=== PATIENT | female | born 1990 | race Caucasian/White ===

== ENCOUNTER 2016-12-11 01:42 | Emergency (ER) | payer BC, OTHER ==
[~2016-12-11] VITALS: Ht 154.9 cm; Wt 88.6 kg
[~2016-12-11 01:42] MED LIST: BCPILLS PO
[2016-12-11 01:46] VITALS: TEMP 36.7; Ht 154.9 cm; Wt 88.6 kg
--- NOTE | 2016-12-11 02:11 | EMERGENCY ROOM VISIT NOTE ---
History Report prepared by Dorothy: Sariah Freed Under the Supervision of: Dr. Carie Riley D.O. First contact with patient: 01:50 Chief Complaint: ED VAG BLEEDING Stated Complaint: BLEEDING,7 WEEKS PREG History of Present Illness The patient is a 26 year old female who presents to the Emergency Room with complaints of sudden vaginal bleeding that began a few hours ago. She currently rates her discomfort as a 2/10 in severity. The patient states that she was approximately 7 weeks . She states that she has been planning to undergo a medical . The patient states that she took the 1 Mifeprex and two Doxycycline prescribed for the medical , but states that she did not take the second set of pills yesterday due to having work through the day. She states that she woke up a few hours ago with vaginal bleeding and noticed clots. The patient states that she was receiving her care from [facility] in [address], noting that she had positive tests, and an ultrasound. She denies any other active medical problems. The patient denies any lightheadedness or weakness. She states that her last normal menstrual cycle was October 19. Source of History: patient Onset: a few hours ago Position: other (vaginal) Symptom Intensity: 2/10 Quality: other (bleeding) Timing: other (sudden) Associated Symptoms: No weakness Review of Systems See HPI for pertinent positives & negatives. A total of 10 systems reviewed and were otherwise negative. Past Medical & Surgical Medical Problems: (1) Tonsillectomy Family History Cancer Diabetes mellitus Heart disease Hypertension Social History Smoking Status: Current Every Day Smoker Alcohol Use: none Drug Use: none Marital Status: single Housing Status: lives with family Occupation Status: employed Current/Historical Medications No Active Prescriptions or Reported Meds Allergies Coded Allergies: Cat Dander (Verified Allergy, Unknown, UNK, 12/11/16) Dog Dander (Verified Allergy, Unknown, UNK, 12/11/16) Latex1 -Allergic Contact Dermititis (Verified Allergy, Unknown, RASH, 12/11) POLLEN (Verified Allergy, Unknown, UNK, 12/11/16) Physical Exam Vital Signs Date Time Temp Pulse Resp B/P Pulse Ox O2 Delivery O2 Flow Rate FiO2 12/11/16 05:35 88 18 108/68 98 12/11/16 03:45 89 18 114/60 99 Room Air 12/11/16 01:46 36.7 78 18 127/86 98 Room Air Physical Exam HEENT: Head - normocephalic and atraumatic Pupils are equal, round, and reactive to light. Extraocular eye muscles are intact, and sclera are anicteric. Nose - moist nasal mucosa without discharge. Mouth - moist buccal mucosa. Oropharynx is nonerythematous and there is no tonsillar exudate or edema noted. Neck: Supple; no JVD, nuchal rigidity, cervical lymphadenopathy. Heart: Regular rate and rhythm. There is a normal S1 and S2 with no murmurs, clicks, or gallops appreciated. Lungs: Clear to auscultation bilaterally with no wheezes, rales, or rhonchi. Abdomen: Soft, completely nontender, nondistended, with good bowel sounds. There are no palpable pulsatile masses or hepatosplenomegaly. There is no guarding, rigidity, or rebound noted. Pelvic: On speculum exam, large clots removed with ring forceps, cervical os is open Extremities: No evidence of cyanosis, clubbing, or edema. There are easily palpable peripheral pulses. Skin: warm and dry with good turgor and no rashes. Medical Decision & Procedures ER Provider Diagnostic Interpretation: US results as stated below per my review and radiologist interpretation: US Ob/Endovag: Heterogeneous thickened endometrial stripe with movement likely blood clot. Probable nabothian cysts in lower uterine segment, versus 1 may be gestational sac. Findings correlate with spontaneous AB. 5 cm right ovarian cyst. Follicles and flow visualized in both ovaries. Trace free fluid in the cul-de-sac and left adnexa. Radiologist: Tarah Cook MD Study ready at 9871 and initial results transmitted at 0500. Laboratory Results 12/11/16 02:15 Test 12/11/16 02:15 Red Blood Count 4.85 M/uL (4.2-5.4) Mean Corpuscular Volume 88.5 fL (80-100) Mean Corpuscular Hemoglobin 31.5 pg (25-34) Mean Corpuscular Hemoglobin Concent 35.7 g/dl (32-36) RDW Standard Deviation 42.0 fL (36.4-46.3) RDW Coefficient of Variation 13.0 % (11.5-14.5) Mean Platelet Volume 10.9 fL (7.4-10.4) Human Chorionic Gonadotropin, Quant 31438 mIU/mL Laboratory results per my review. ED Course 0200: Past medical records reviewed. The patient was evaluated in room B12A. A complete history and physical exam was performed. An IV lock was initiated and labs are drawn as above. 0235: The nurse alerted me that the patient vomited and became dizzy with the IV stick. I reevaluated the patient and she is feeling fine. 0330: I reevaluated the patient and had some vaginal hemorrhage when she got up to go to the bathroom. She is going to have an ultrasound 0506: I reevaluated the patient and she is doing fine. I discussed her ultrasound results. She is going to have a pelvic exam. 0513: I performed the pelvic exam at this time. See physical exam for further detail. I discussed all the exam findings with her and I discussed the treatment plan. She verbalized complete understanding and agreement. She is ready to go home. Medical Decision The patient is a 26 year old female who presents to the ED with vaginal bleeding. Differential diagnosis includes spontaneous miscarriage, ectopic Lab interpretation: Quantitative HCG 44,205, normal white count, stable H&H This is a 26-year-old female patient who is approximately 7 weeks who presents to the emergency department with vaginal bleeding.. The patient had intended to undergo a medical but did not get a chance to take the medications before developing a spontaneous miscarriage. This was her first . Ultrasound shows miscarriage in progress. The patient has a positive blood type and will not require Rhogam. The patient was instructed to follow-up with her cadd instructor to have the quantitative hCG rechecked in the next couple of days. Impression Primary Impression: Spontaneous Scribe Attestation The scribe's documentation has been prepared under my direction and personally reviewed by me in its entirety. I confirm that the note above accurately reflects all work, treatment, procedures, and medical decision making performed by me. Departure Information Dispostion Home / Self-Care Prescriptions No Active Prescriptions or Reported Meds Referrals Tasha De Luna PLexie (PCP) Forms HOME CARE DOCUMENTATION FORM, IMPORTANT VISIT INFORMATION, WORK / SCHOOL INSTRUCTIONS Patient Instructions ED Miscarriage Inevitable, My [facility] Additional Instructions Rest. Take plenty of clear liquids Follow up with gynecology for repeat quantitative hormone levels.
[2016-12-11 02:24] LABS: HEMATOCRIT 42.9 % (37-47); MEAN CELL VOLUME 88.5 fL (80-100); MEAN CORPUSCULAR HEMOGLOBIN 31.5 pg (25-34); MEAN CORPUSCULAR HGB CONC 35.7 g/dl (32-36); MEAN PLATELET VOLUME 10.9 fL (7.4-10.4); PLATELET COUNT 281 K/uL (130-400); RED BLOOD COUNT 4.85 M/uL (4.2-5.4); WHITE BLOOD COUNT 8.79 K/uL (4.8-10.8)
[2016-12-11 05:35] VITALS: BP 108/68; PULSE 88; O2SAT 98
--- NOTE | 2016-12-11 07:48 | DIAGNOSTIC IMAGING REPORT ---
ENDOVAGINAL ULTRASOUND CLINICAL HISTORY: . Possible spontaneous . 7 weeks COMPARISON STUDY: No previous studies for comparison. FINDINGS: The uterus measures 7.6 x 4.4 x 4.9 cm. The endometrium is thickened measuring 19 mm. Fluid is visualized moving within the uterine cavity, consistent with hemorrhage. No intrauterine gestational sac is visualized. There are multiple nabothian gland cysts. The right ovary measures 35 x 26 x 37 mm. There is a 5.2 cm right ovarian cyst. No septations or mural nodules are visualized. The left ovary measures 29 x 23 x 24 mm. There is trace fluid within the cul-de-sac and left adnexa. IMPRESSION: 1. No intrauterine gestation identified 2. Heterogeneous thickened endometrium, likely representing a blood clot. 3. 5.2 cm right ovarian cyst. 4. Given the history of a 7 week , the findings may indicate a spontaneous . Correlation with quantitative beta hCGs is recommended. Electronically signed by: Jarod Castro M.D. 12/11/2016 7:46 AM Dictated Date/Time: 12/11/2016 7:42 AM
== END 2016-12-11 05:36 | disposition home or self-care (01) ==
LOC: C.EDB 01:44
DX: O03.9 Complete or unspecified spontaneous abortion without complication (principal); Z3A.01 Less than 8 weeks gestation of pregnancy; F17.210 Nicotine dependence, cigarettes, uncomplicated

== ENCOUNTER 2017-08-06 22:03 | Emergency (ER) | payer BC, OTHER ==
[~2017-08-06] VITALS: Ht 154.9 cm; Wt 86.0 kg
[2017-08-06 22:05] VITALS: TEMP 36.6; Ht 154.9 cm; Wt 86.0 kg
[2017-08-06] MEDS ORDERED: SODIUM CHLORIDE 0.9% 1000ML 1,000 ML IV STA (22:22)
[2017-08-06] MEDS ORDERED: ONDANSETRON INJ 2 MG/ML 2 ML VIAL IV STA ×2 (22:22→23:48)
[2017-08-06] MEDS ORDERED: MoRPHine SULFATE 4 MG/ML 1 ML CARP\\VIAL IV STA ×2 (22:22→23:48)
--- NOTE | 2017-08-06 22:25 | EMERGENCY ROOM VISIT NOTE ---
History First contact with patient: 22:15 Chief Complaint: ABDOMINAL PAIN Stated Complaint: ABDOMINAL PAIN, LEFT UPPER, VOMITING History of Present Illness The patient is a 27 year old female who presents to the Emergency Room with complaints of upper abdominal pain, nausea and vomiting. The patient states that she was shopping today and felt an achiness in her back and shoulder. She states that she ate dinner around 7:30 PM and then began to have worsening pain. She states she had fried fish. She also reports associated vomiting. She rates her discomfort an 8/10. She denies any fevers or chills. She denies any pain in her chest or trouble breathing. She denies any urinary symptoms. She denies diarrhea. She denies any known sick contacts. She denies any history of similar. Review of Systems A 10 system review of systems was completed with positives and pertinent negatives listed in the HPI. Past Medical/Surgical History Medical Problems: (1) Tonsillectomy Family History Cancer Diabetes mellitus Heart disease Hypertension Social History Smoking Status: Never Smoker Alcohol Use: none Drug Use: none Marital Status: single Housing Status: lives with family Occupation Status: employed Current/Historical Medications Scheduled Ondasetron Odt (Zofran Odt), 4 MG SL Q6H Scheduled PRN Oxycodone/Acetaminophen 5MG/325MG (Percocet 5MG/325MG), 1 TAB PO Q4H PRN for Pain Physical Exam Vital Signs Date Time Temp Pulse Resp B/P (MAP) Pulse Ox O2 Delivery O2 Flow Rate FiO2 08/07/17 00:38 79 18 103/68 97 Room Air 08/06/17 23:17 86 18 108/61 96 Room Air 08/06/17 22:05 36.6 75 20 140/48 99 Room Air Physical Exam VITALS: Vitals are noted on the nurse's note and reviewed by myself. Vital signs stable. The patient is afebrile. GENERAL: This is a 27-year-old female, in no acute distress, nondiaphoretic, well-developed well-nourished. SKIN: The skin was without rashes, erythema, edema, or bruising. There is no tenting of the skin. Capillary reflex less than 2 seconds. HEAD: Normocephalic atraumatic. EARS: External auditory canals clear, tympanic membranes pearly garcia without erythema or effusion bilaterally. EYES: Pupils equal round and reactive to light and accommodation. Conjunctivae without injection, sclerae without icterus. Extraocular movements intact. NOSE: Patent, turbinates without inflammation or discharge. MOUTH: Mucous membranes moist. Tonsils are not enlarged. Pharynx without erythema or exudate. Uvula midline. Airway patent. Tongue does not deviate. NECK: Supple without nuchal rigidity. No JVD. HEART: Regular rate and rhythm without murmurs gallops or rubs. LUNGS: Clear to auscultation bilaterally without wheezes, rales or rhonchi. No retractions or accessory muscle use. ABDOMEN: Positive bowel sounds x 4. Soft, marked right upper quadrant tenderness, without masses or organomegaly. Parker sign positive. MUSCULOSKELETAL: No muscle atrophy, erythema, or edema noted. Full range of motion in all extremities. Strength 5/5 throughout. NEURO: Patient was alert and oriented to person place and time. No focal neurological deficits. Medical Decision & Procedures ER Provider Diagnostic Interpretation: GALLBLADDER-ABD LIMITED CLINICAL HISTORY: rug pain, vomiting nausea. Vomiting. TECHNIQUE: Ultrasound COMPARISON STUDY: None. FINDINGS: Gallstone is slightly distended gallbladder. Common bile duct 5 mm. Liver is uniform. Pancreas and right kidney are unremarkable. IMPRESSION: Gallstones in a slightly distended gallbladder. Normal caliber bile ducts. Laboratory Results 08/06/17 22:28 Red Blood Count 4.74, Mean Corpuscular Volume 89.9, Mean Corpuscular Hemoglobin 32.1, Mean Corpuscular Hemoglobin Concent 35.7, Mean Platelet Volume 11.3, Neutrophils (%) (Auto) 67.1, Lymphocytes (%) (Auto) 21.4, Monocytes (%) (Auto) 7.2, Eosinophils (%) (Auto) 3.3, Basophils (%) (Auto) 0.5, Neutrophils # (Auto) 7.13, Lymphocytes # (Auto) 2.28, Monocytes # (Auto) 0.77, Eosinophils # (Auto) 0.35, Basophils # (Auto) 0.05 08/06/17 22:28 Test 08/06/17 22:28 White Blood Count 10.63 K/uL (4.8-10.8) Red Blood Count 4.74 M/uL (4.2-5.4) Hemoglobin 15.2 g/dL (12.0-16.0) Hematocrit 42.6 % (37-47) Mean Corpuscular Volume 89.9 fL (80-100) Mean Corpuscular Hemoglobin 32.1 pg (25-34) Mean Corpuscular Hemoglobin Concent 35.7 g/dl (32-36) Platelet Count 296 K/uL (130-400) Mean Platelet Volume 11.3 fL (7.4-10.4) Neutrophils (%) (Auto) 67.1 % Lymphocytes (%) (Auto) 21.4 % Monocytes (%) (Auto) 7.2 % Eosinophils (%) (Auto) 3.3 % Basophils (%) (Auto) 0.5 % Neutrophils # (Auto) 7.13 K/uL (1.4-6.5) Lymphocytes # (Auto) 2.28 K/uL (1.2-3.4) Monocytes # (Auto) 0.77 K/uL (0.11-0.59) Eosinophils # (Auto) 0.35 K/uL (0-0.5) Basophils # (Auto) 0.05 K/uL (0-0.2) RDW Standard Deviation 42.8 fL (36.4-46.3) RDW Coefficient of Variation 13.1 % (11.5-14.5) Immature Granulocyte % (Auto) 0.5 % Immature Granulocyte # (Auto) 0.05 K/uL (0.00-0.02) Anion Gap 10.0 mmol/L (3-11) Est Creatinine Clear Calc Drug Dose 110.2 ml/min Estimated GFR () 123.5 Estimated GFR (Non- 106.6 BUN/Creatinine Ratio 19.9 (10-20) Calcium Level 9.5 mg/dl (8.5-10.1) Total Bilirubin 0.3 mg/dl (0.2-1) Aspartate Amino Transf (AST/SGOT) 15 U/L (15-37) Alanine Aminotransferase (ALT/SGPT) 39 U/L (12-78) Alkaline Phosphatase 91 U/L (45-117) Total Protein 8.0 gm/dl (6.4-8.2) Albumin 4.3 gm/dl (3.4-5.0) Globulin 3.7 gm/dl (2.5-4.0) Albumin/Globulin Ratio 1.2 (0.9-2) Lipase 111 U/L (73-393) Medications Administered Medications (Trade) Dose Ordered Sig/Winter Route Start Time Stop Time Status Last Admin Dose Admin Sodium Chloride 1,000 ml @ 999 mls/hr Q1H1M STAT IV 08/06/17 22:22 08/06/17 23:22 DC 08/06/17 22:35 999 MLS/HR Ondansetron HCl (Zofran Inj) 4 mg NOW STAT IV 08/06/17 22:22 08/06/17 22:24 DC 08/06/17 22:35 4 MG Morphine Sulfate (MoRPHine SULFATE INJ) 4 mg NOW STAT IV 08/06/17 22:22 08/06/17 22:24 DC 08/06/17 22:36 4 MG Morphine Sulfate (MoRPHine SULFATE INJ) 4 mg NOW STAT IV 08/06/17 23:48 08/06/17 23:49 DC 08/06/17 23:59 4 MG Ondansetron HCl (Zofran Inj) 4 mg NOW STAT IV 08/06/17 23:48 08/06/17 23:49 DC 08/06/17 23:59 4 MG Oxycodone/ Acetaminophen (Percocet 5/ 325MG Home Pack) 1 homepack UD ONCE PO 08/07/17 00:30 08/07/17 00:31 DC 08/07/17 00:42 1 HOMEPACK Ondansetron HCl (ZOFRAN ODT 4MG Home Pack) 1 homepack UD ONCE PO 08/07/17 00:30 08/07/17 00:31 DC 08/07/17 00:41 1 HOMEPACK ED Course The patient was seen and examined. Previous visits were reviewed. The patient does not have a fever or leukocytosis. She does not have any significant electrolyte abnormality. Lipase is not elevated. Ultrasound of the gallbladder reveals gallstones but no acute cholecystitis The patient was hydrated with IV normal saline solution She was initially given 4 mg IV morphine and 4 mg IV Zofran with mild improvement in her pain Pain returned prior to discharge and she was given additional 4 mg IV morphine and 4 mg IV Zofran the patient presents to the emergency department with upper abdominal pain, nausea and vomiting. Her symptoms worsened after eating a meal of fried fish. The patient does have gallstones on ultrasound the gallbladder. I suspect biliary colic. There is no fever, leukocytosis evidence for acute cholecystitis on ultrasound. The patient will require further follow-up as an outpatient and possibly HIDA scan/cholecystectomy. She will be given prescriptions for Percocet and Zofran. She should return with any intractable pain, fevers or generalized worsening symptoms. The case was discussed with Dr. Bautista who agrees with the assessment and she had plan Medical Decision DIFFERENTIAL DIAGNOSIS: Hepatitis, cholecystitis, cholangitis, biliary colic, pancreatitis, pneumonia, subdiaphragmatic abscess, appendicitis, inguinal hernia , nephrolithiasis, inflammatory bowel disease, mesenteric adenitis, peptic ulcer disease, GERD, gastritis, pancreatitis, myocardial infarction, pericarditis, ruptured aortic aneurysm, appendicitis, gastroenteritis, bowel obstruction, splenic infarct, diverticulitis, mesenteric ischemia, metabolic, peritonitis, among others. [place] Drug Monitoring [place] Search Results: patient reviewed within database, no issues identified Medication Reconcilliation Current Medication List: was personally reviewed by pa Blood Pressure Screening Patient's blood pressure: Normal blood pressure Blood pressure disposition: Did not require urgent referral Impression Primary Impression: Biliary colic Additional Impression: Gall stones Departure Information Dispostion Home / Self-Care Condition GOOD Prescriptions Ondasetron Odt (ZOFRAN ODT) 4 Mg Tab 4 MG SL Q6H for Nausea, #10 TAB Prov: Sariah Wang PA-C 08/07/17 Oxycodone/Acetaminophen 5MG/325MG (PERCOCET 5MG/325MG) Tab 1 TAB PO Q4H Y for Pain, #18 TAB For Initial Treatment Prov: Sariah Wang PA-C 08/07/17 Referrals Tasha De Luna AAngela PLexie (PCP) Patient Instructions My [facility] [employer] Additional Instructions Percocet 1-2 tablet every 4-6 hours as needed for worse pain. No driving or alcohol use with Percocet and do not take with Tylenol. Zofran as prescribed, as needed for nausea and vomiting Avoid greasy, fatty foods Follow up with your family doctor and/or Gen. surgery for further evaluation and management Return with any fevers, worsening, constant pain Problem Qualifiers
[2017-08-06 22:38] LABS: BASO % 0.5 %; BASO ABS # 0.05 K/uL (0-0.2); COMPLETE YES; EOS % 3.3 %; HEMATOCRIT 42.6 % (37-47); IG% 0.5 %; LYMPH % 21.4 %; LYMPH ABS # 2.28 K/uL (1.2-3.4); MEAN CELL VOLUME 89.9 fL (80-100); MEAN CORPUSCULAR HEMOGLOBIN 32.1 pg (25-34); MEAN CORPUSCULAR HGB CONC 35.7 g/dl (32-36); MEAN PLATELET VOLUME 11.3 fL (7.4-10.4); MONO % 7.2 %; NEUT % 67.1 %; PLATELET COUNT 296 K/uL (130-400); RED BLOOD COUNT 4.74 M/uL (4.2-5.4); WHITE BLOOD COUNT 10.63 K/uL (4.8-10.8)
[2017-08-06 22:56] LABS: BUN/CREATININE RATIO 19.9 (10-20); CALCIUM 9.5 mg/dl (8.5-10.1); CREATININE 0.77 mg/dl (0.60-1.20); POTASSIUM 3.3 mmol/L (3.5-5.1)
[2017-08-06 22:59] LABS: ALB/GLOB RATIO 1.2 (0.9-2)
[2017-08-07] MEDS ORDERED: ONDA4TAB10 SL (00:26)
[2017-08-07] MEDS ORDERED: OXYC-57 PO (00:26)
[2017-08-07] MEDS ORDERED: PERCOCET HOME PACK PO ONE (00:30)
[2017-08-07] MEDS ORDERED: ONDANSETRON HOME PACK 4MG OD TAB PO ONE (00:30)
[2017-08-07 00:38] VITALS: BP 103/68; PULSE 79; O2SAT 97
--- NOTE | 2017-08-07 05:56 | DIAGNOSTIC IMAGING REPORT ---
GALLBLADDER-ABD LIMITED CLINICAL HISTORY: rug pain, vomiting nausea. Vomiting. TECHNIQUE: Ultrasound COMPARISON STUDY: None. FINDINGS: Gallstone is slightly distended gallbladder. Common bile duct 5 mm. Liver is uniform. Pancreas and right kidney are unremarkable. IMPRESSION: Gallstones in a slightly distended gallbladder. Normal caliber bile ducts. The above report was generated using voice recognition software. It may contain grammatical, syntax or spelling errors. Electronically signed by: Brock Arias M.D. 08/07/2017 5:55 AM Dictated Date/Time: 08/07/2017 5:54 AM
== END 2017-08-07 00:52 | disposition home or self-care (01) ==
LOC: C.EDB 22:04 → C.EDA 08-07 00:52
DX: K80.80 Other cholelithiasis without obstruction (principal); Z98.890 Other specified postprocedural states; Z80.9 Family history of malignant neoplasm, unspecified; Z83.3 Family history of diabetes mellitus; Z82.49 Family history of ischemic heart disease and other diseases of the circulatory system

== ENCOUNTER 2020-06-14 13:52 | Inpatient (IN) ==
[2020-06-14] MEDS ORDERED: OXYTOCIN 30 UNITS/500 ML BAG IV PRN ×2 (14:26→20:58)
[2020-06-14] MEDS: LACTATED RINGER'S 1,000 ML IV PRN ×3 (14:49→21:28)
[2020-06-14] MEDS ORDERED: fentaNYL 2MCG/ML ROPIV 1.25MG/ML 100 ML BAG EPI ONE (14:53)
[2020-06-14] MEDS ORDERED: ePHEDrine sulfate 50 MG/ML AMP ONE (14:53)
[2020-06-14] MEDS ORDERED: fentaNYL citrate 100 MCG/2 ML VIAL ONE (14:53)
[2020-06-14] MEDS ORDERED: BUPIVACAINE 0.25% 30 ML VIAL ONE (14:53)
--- NOTE | 2020-06-14 14:58 | Anesthesiology Consultation ---
Date of Service June 14, 2020 Assessment & Plan (1) Encounter for pre-operative examination: History Allergies Allergy/AdvReac Type Severity Reaction Status Date / Time cat dander Allergy Unknown PUFFY EYES Verified 06/12/20 10:05 dog dander Allergy Unknown PUFFY EYES Verified 06/12/20 10:05 latex Allergy Unknown RASH Verified 06/12/20 10:05 pollen extracts Allergy Unknown PUFFY EYES Verified 06/12/20 10:05 Medications Home Medications Medication Instructions Recorded Confirmed Last Taken prenat.vits,roxanne,[id number] 1 tab PO DAILY 10/29/19 06/12/20 Unknown Active Medications Generic Name Dose Route Start Last Admin Trade Name Freq PRN Reason Stop Dose Admin Lactated Ringer's 1,000 mls @ 125 mls/hr 06/14/20 14:26 06/14/20 14:49 Lr IV 06/16/20 14:25 999 mls/hr .Q8H PRN Administration L&D Protocol Protocol Past Medical History Medical History Abnormal biochemical finding on screening of mother (Resolved) Environmental and seasonal allergies (Chronic) History of chicken pox Hx of migraines Nausea, vomiting and diarrhea (Inactive) Ovarian cyst affecting , antepartum Second trimester (Inactive) URI (upper respiratory infection) (Inactive) Past Family History Family History Mother Diabetes Hypertension Grandmother (Maternal) Colorectal cancer Father Skin cancer Past Surgical History Surgical History S/P cholecystectomy S/P tonsillectomy S/P wisdom tooth extraction Social History Smoking Status: Never smoker Physical Exam Vital Signs Last Vital Signs Pulse 93 H 06/14/20 14:09 BP 138/104 H 06/14/20 14:09
[2020-06-14 15:12] LABS: Alanine Aminotransferase 13 U/L (12-78); Albumin Level 2.8 gm/dl (3.4-5.0); Aspartate Aminotransferase 11 U/L (15-37); BUN Creatinine Ratio 13.9 (10-20); Blood Urea Nitrogen 10 mg/dl (7-18); Calcium 9.3 mg/dl (8.5-10.1); Carbon Dioxide 21 mmol/L (21-32); Chloride 108 mmol/L (98-107); Est GFR (African American) 132.1; Glucose 75 mg/dl (70-99); Potassium 3.7 mmol/L (3.5-5.1); Sodium 136 mmol/L (136-145)
[2020-06-14 15:15] LABS: Albumin Globulin Ratio 0.6 (0.9-2); Alkaline Phosphatase 218 U/L (45-117); Bilirubin,Total 0.3 mg/dl (0.2-1); Globulin 4.5 gm/dl (2.5-4.0); Total Protein 7.3 gm/dl (6.4-8.2)
[2020-06-14 15:18] LABS: Hematocrit (blood only) 41.1 % (37-47); Hemoglobin 13.8 g/dL (12.0-16.0); Mean Corpuscular Hemoglobin 27.5 pg (25-34); Mean Corpuscular Volume 81.9 fL (80-100); Mean Platelet Volume 12.7 fL (7.4-10.4); Platelet Count 300 K/uL (130-400); RDW Coefficient of Variation 15.5 % (11.5-14.5); RDW Standard Deviation 45.3 fL (36.4-46.3); Red Blood Count 5.02 M/uL (4.2-5.4); White Blood Count 11.23 K/uL (4.8-10.8)
[2020-06-14 15:19] LABS: Mean Corpuscular Hgb Conc 33.6 g/dL (32-36)
--- NOTE | 2020-06-14 16:18 | History & Physical Report ---
Date of Service June 14, 2020 Assessment & Plan (1) Encounter for supervision in primigravida, antepartum: (2) Cyst of right ovary: (3) Obesity affecting , antepartum: (4) Cervical polyp: (5) Normal labor: admit, iv, labs, has epidural, good progress. fhts categ 1. Admission and Anticipated Discharge Date Admission Date: June 14, 2020 History of Present Illness Chief Complaint: regular ctx. Primary Care Provider: Tasha De Luna PA-C 29yo at 39+wks egananth presents to L&D with above cc. On arrival exam 5cm and regular painful ctx, wanting epidural and received epidural. While getting epidural felt like her water broke. No vb. +FM PNC c/b 1. obesity, aga on efw at 32wks 2. simple cyst, plan pp followup 3. cervical polyp PNL rhpos, ri, gbs neg OBH: sab x 1 [facility]: nl paps, no stds Allergies Allergy/AdvReac Type Severity Reaction Status Date / Time cat dander Allergy Unknown PUFFY EYES Verified 06/12/20 10:05 dog dander Allergy Unknown PUFFY EYES Verified 06/12/20 10:05 latex Allergy Unknown RASH Verified 06/12/20 10:05 pollen extracts Allergy Unknown PUFFY EYES Verified 06/12/20 10:05 Home Medications Home Medications Medication Instructions Recorded Confirmed Type prenat.vits,roxanne,[id number] 1 tab PO DAILY 10/29/19 06/12/20 History Patient History Medical History Abnormal biochemical finding on screening of mother (Resolved) Environmental and seasonal allergies (Chronic) History of chicken pox Hx of migraines Nausea, vomiting and diarrhea (Inactive) Ovarian cyst affecting , antepartum Second trimester (Inactive) URI (upper respiratory infection) (Inactive) Surgical History S/P cholecystectomy S/P tonsillectomy S/P wisdom tooth extraction Family History Mother Diabetes Hypertension Grandmother (Maternal) Colorectal cancer Father Skin cancer Social History (Reviewed 01/25/20 @ 20:23 by Hortensia Jama Preferred Language: Croatian Promotions Team Leader Required: No Beliefs That Will Affect Care: None marital status: marital status details: Arthur Wallace (25) [phone] Current Living Situation: Spouse Current Living Situation Comment: lives with spouse, dog current occupational status: employed 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[employer] Other Information That Helps Us Care for You: No Feels Safe at Home: Yes Safety Concerns: Feels Safe At This Time Smoking Status: Never smoker Do You Dip or Chew Tobacco: No ; Second Hand Exposure: No ; Tobacco Cessation Education Requested by Patient: No Hx Alcohol Use: No Hx Substance Use: No Review of Systems per hpi Physical Exam Constitutional: WD/WN, vitals as above Respiratory: normal respiratory effort, lungs clear to auscultation Cardiovascular: Rate/Rhythm: regular rate and regular rhythm Gastrointestinal (Abdomen): soft gravid nt Musculoskeletal: no edema Neurologic: grossly normal Psychiatric: A+Ox3, euthymic affect Genitourinary: OB Exam Abdomen: + estimated weight (7-8#) Manual OB Exam: + cervical dilation 6 cm, + cervical effacement 90%, + station -1 and + amniotic fluid (forebag arom) meconium OB Exam Monitor Tracing: + external FHT monitor used (135 mod variability), + external uterine monitor used (q2), + category I and + normal FHT variability Results & Data ([facility]) Vital Signs (Past 12 Hours) Vital Signs Temp Pulse Resp BP Pulse Ox 06/14/20 16:16 115 H 94 06/14/20 16:15 97 H 93 06/14/20 16:12 98 H 106/57 L 06/14/20 16:10 102 H 100 06/14/20 16:09 112 H 79/48 L 06/14/20 16:06 102 H 95/52 L 06/14/20 16:05 107 H 99 06/14/20 16:03 111 H 109/54 L 06/14/20 16:00 98.1 F 113 H 18 104/54 L 99 06/14/20 15:55 124 H 100 06/14/20 15:50 102 H 100 06/14/20 15:45 94 H 98 06/14/20 15:40 102 H 97 06/14/20 15:35 88 99 06/14/20 15:30 102 H 98 06/14/20 15:25 105 H 99 06/14/20 15:23 90 87 L 06/14/20 15:20 93 H 100 06/14/20 15:17 98.6 F 18 06/14/20 15:15 92 H 100 06/14/20 15:10 96 H 99 06/14/20 15:05 89 93 06/14/20 15:04 85 93 06/14/20 14:59 86 115/84 06/14/20 14:09 93 H 138/104 H Coding Level of Care Code None Diagnoses Encounter for supervision in primigravida, antepartum Z34.00 Cyst of right ovary N83.201 Obesity affecting , antepartum O99.210 Cervical polyp N84.1 Normal labor O80; Z37.9
[2020-06-14] MEDS ORDERED: fentaNYL 2MCG/ML ROPIV 1.25MG/ML 100 ML BAG EPI PRN (16:56)
[2020-06-14] MEDS ORDERED: ePHEDrine sulfate 50 MG/ML AMP IV PRN (16:56)
[2020-06-14] MEDS ORDERED: NALOXONE HCL 0.4 MG/1 ML VIAL/CARP IV PRN (16:56)
[2020-06-14] MEDS ORDERED: ONDANSETRON INJ 2 MG/ML 2 ML VIAL IV PRN (16:56)
[2020-06-14] MEDS ORDERED: NALOXONE HCL 1 MG in SODIUM CHLORIDE 0.9% 1000ML 1,000 ML IV PRN (16:56)
[2020-06-14] MEDS ORDERED: DiphenhydrAMINE HCL 50 MG/ML VIAL IV PRN (16:56)
--- NOTE | 2020-06-14 18:24 | Labor Progress Brief Note ---
Date of Service June 14, 2020 Subjective Reason For Note: Routine Evaluation comfortable with epidural. Assessment & Plan (1) Encounter for supervision in primigravida, antepartum: (2) Obesity affecting , antepartum: (3) Normal labor: some cx change. fhts categ 1. Admission and Anticipated Discharge Date Admission Date: June 14, 2020 Physical Exam Constitutional: WD/WN, vitals as above Genitourinary: Manual OB Exam: + cervical dilation 7 cm, + cervical effacement 100% and + station 0 OB Exam Monitor Tracing: + external FHT monitor used (135 mod variability ), + external uterine monitor used (q2-3), + category I and + normal FHT variability Results & Data ([place]) Vital Signs (Past 12 Hours) Vital Signs Temp Pulse Resp BP Pulse Ox 06/14/20 18:17 115 H 94 06/14/20 18:15 117 H 116/75 06/14/20 18:12 108 H 96 06/14/20 18:07 121 H 97 06/14/20 18:02 108 H 97 06/14/20 18:00 110 H 125/69 06/14/20 17:57 113 H 97 06/14/20 17:52 118 H 95 06/14/20 17:47 110 H 96 06/14/20 17:44 111 H 135/78 06/14/20 17:42 111 H 96 06/14/20 17:37 106 H 94 06/14/20 17:32 109 H 95 06/14/20 17:30 102 H 20 94 06/14/20 17:28 114 H 109/61 06/14/20 17:27 104 H 95 06/14/20 17:22 117 H 96 06/14/20 17:17 110 H 95 06/14/20 17:13 114 H 121/73 06/14/20 17:12 105 H 95 06/14/20 17:07 121 H 95 06/14/20 17:05 117 H 94 06/14/20 17:02 115 H 95 20 16:59 103 H 126/70 06/14/20 16:57 105 H 94 06/14/20 16:52 112 H 94 06/14/20 16:47 104 H 93 06/14/20 16:45 107 H 94 06/14/20 16:44 114 H 115/69 06/1420 16:42 130 H 95 1820 16:40 109 H 94 20 16:37 114 H 95 20 16:31 106 H 93 20 16:29 104 H 116/68 20 16:26 103 H 94 20 16:21 101 H 94 1820 16:16 115 H 94 06/14/20 16:15 97 H 93 06/14/20 16:12 98 H 106/57 L 06/14/20 16:10 102 H 100 06/14/20 16:09 112 H 79/48 L 06/14/20 16:06 102 H 95/52 L 06/14/20 16:05 107 H 99 06/14/20 16:03 111 H 109/54 L 06/14/20 16:00 98.1 F 113 H 18 104/54 L 99 06/14/20 15:55 124 H 100 06/14/20 15:50 102 H 100 06/14/20 15:45 94 H 98 1820 15:40 102 H 97 20 15:35 88 99 1820 15:30 102 H 98 20 15:25 105 H 99 20 15:23 90 87 L 06/14/20 15:20 93 H 100 20 15:17 98.6 F 18 06/14/20 15:15 92 H 100 06/14/20 15:10 96 H 99 06/14/20 15:05 89 93 1820 15:04 85 93 18 14:59 86 115/84 06/14/20 14:09 93 H 138/104 H Coding Level of Care Code None Diagnoses Encounter for supervision in primigravida, antepartum Z34.00 Obesity affecting , antepartum O99.210 Normal labor O80; Z37.9
[2020-06-14] MEDS ORDERED: ACETAMINOPHEN 325 MG TAB PO STA (20:58)
[2020-06-14] MEDS ORDERED: ACETAMINOPHEN 325 MG TAB ONE (21:06)
--- NOTE | 2020-06-14 21:45 | Labor Progress Brief Note ---
Date of Service June 14, 2020 Subjective Reason For Note: Routine Evaluation pt notes pressure, was told by nursing fhts baseline rising and temp was 100.3F pt denies complaints. Assessment & Plan (1) Encounter for supervision in primigravida, antepartum: (2) Obesity affecting , antepartum: (3) Normal labor: had planned to add pitocin as dilation has been slow, bolus going of ivf and tylenol given. fhts categ 1. will plan to recheck cx 1-1.5hr from last check. Admission and Anticipated Discharge Date Admission Date: June 14, 2020 Physical Exam Constitutional: WD/WN, vitals as above Psychiatric: A+Ox3, euthymic affect Genitourinary: OB Exam Monitor Tracing: + external FHT monitor used (165 mod variability, early decels), + external uterine monitor used (q2), + category I and + normal FHT variability Results & Data ([place]) Vital Signs (Past 12 Hours) Vital Signs Temp Pulse Resp BP Pulse Ox 06/14/20 21:42 120 H 95 20 21:37 127 H 93 18/20 21:36 124 H 93 18/20 21:32 131 H 94 0718/20 21:29 131 H 135/78 94 18/20 21:27 128 H 94 18/20 21:24 128 H 94 18/20 21:22 129 H 94 07/18/20 21:17 135 H 93 07/18/20 21:14 134 H 137/71 0718/20 21:12 144 H 93 07/18/20 21:07 130 H 94 18/20 21:06 127 H 94 18/20 21:02 128 H 94 07/18/20 20:59 126 H 121/65 07/18/20 20:58 128 H 94 07/18/20 20:57 139 H 94 07/18/20 20:52 137 H 93 07/18/20 20:50 100.2 F H 20 07/18/20 20:47 129 H 92 07/18/20 20:44 121 H 146/70 H 0718/20 20:42 124 H 92 0718/20 20:37 118 H 94 0718/20 20:32 115 H 93 0718/20 20:28 122 H 134/64 07/18/20 20:27 117 H 93 07/18/20 20:22 123 H 93 07/18/20 20:17 119 H 91 07/18/20 20:13 115 H 135/75 07/18/20 20:12 119 H 93 07/18/20 20:07 114 H 93 07/18/20 20:02 115 H 93 07/18/20 19:59 113 H 133/72 07/18/20 19:57 119 H 93 07/18/20 19:55 118 H 94 07/18/20 19:52 120 H 94 07/18/20 19:47 117 H 94 07/18/20 19:45 116 H 94 07/18/20 19:44 105 H 136/70 07/18/20 19:42 113 H 93 07/18/20 19:38 112 H 94 07/18/20 19:37 106 H 95 07/18/20 19:33 108 H 94 07/18/20 19:32 119 H 93 07/18/20 19:28 113 H 131/64 07/18/20 19:27 105 H 94 07/18/20 19:26 104 H 94 07/18/20 19:22 114 H 94 07/18/20 19:20 111 H 94 07/18/20 19:17 111 H 94 07/18/20 19:14 113 H 134/63 07/18/20 19:12 114 H 94 07/18/20 19:11 114 H 94 07/18/20 19:07 111 H 93 07/18/20 19:06 107 H 94 07/18/20 19:02 108 H 93 07/18/20 19:00 98.8 F 18 07/18/20 18:58 111 H 127/72 07/18/20 18:57 106 H 94 07/18/20 18:54 111 H 94 07/18/20 18:52 105 H 95 07/18/20 18:47 108 H 95 07/18/20 18:43 100 H 135/85 07/18/20 18:42 100 H 96 07/18/20 18:37 98 H 95 07/18/20 18:32 97 H 95 07/18/20 18:29 110 H 129/77 07/18/20 18:27 104 H 94 07/18/20 18:22 114 H 95 07/18/20 18:17 115 H 94 07/18/20 18:15 117 H 116/75 07/18/20 18:12 108 H 96 07/18/20 18:07 121 H 97 07/18/20 18:02 108 H 97 07/18/20 18:00 110 H 125/69 07/18/20 17:57 113 H 97 07/18/20 17:52 118 H 95 07/18/20 17:47 110 H 96 0718/20 17:44 111 H 135/78 0718/20 17:42 111 H 96 07/18/20 17:37 106 H 94 07/18/20 17:32 109 H 95 07/18/20 17:30 102 H 20 94 07/18/20 17:28 114 H 109/61 0718/20 17:27 104 H 95 07/18/20 17:22 117 H 96 07/18/20 17:17 110 H 95 0718/20 17:13 114 H 121/73 0718/20 17:12 105 H 95 0718/20 17:07 121 H 95 0718/20 17:05 117 H 94 07/18/20 17:02 115 H 95 0718/20 16:59 103 H 126/70 0718/20 16:57 105 H 94 07/18/20 16:52 112 H 94 07/18/20 16:47 104 H 93 07/18/20 16:45 107 H 94 07/18/20 16:44 114 H 115/69 07/18/20 16:42 130 H 95 0718/20 16:40 109 H 94 07/18/20 16:37 114 H 95 07/18/20 16:31 106 H 93 07/18/20 16:29 104 H 116/68 07/18/20 16:26 103 H 94 07/18/20 16:21 101 H 94 07/18/20 16:16 115 H 94 07/18/20 16:15 97 H 93 07/18/20 16:12 98 H 106/57 L 07/18/20 16:10 102 H 100 07/18/20 16:09 112 H 79/48 L 0718/20 16:06 102 H 95/52 L 18/20 16:05 107 H 99 07/18/20 16:03 111 H 109/54 L 06/14/20 16:00 98.1 F 113 H 18 104/54 L 99 06/14/20 15:55 124 H 100 06/14/20 15:50 102 H 100 06/14/20 15:45 94 H 98 06/14/20 15:40 102 H 97 06/14/20 15:35 88 99 06/14/20 15:30 102 H 98 06/14/20 15:25 105 H 99 06/14/20 15:23 90 87 L 06/14/20 15:20 93 H 100 06/14/20 15:17 98.6 F 18 06/14/20 15:15 92 H 100 06/14/20 15:10 96 H 99 06/14/20 15:05 89 93 06/14/20 15:04 85 93 06/14/20 14:59 86 115/84 06/14/20 14:09 93 H 138/104 H Coding Level of Care Code None Diagnoses Encounter for supervision in primigravida, antepartum Z34.00 Obesity affecting , antepartum O99.210 Normal labor O80; Z37.9
--- NOTE | 2020-06-14 22:14 | Labor Progress Brief Note ---
Date of Service June 14, 2020 Subjective Reason For Note: Requested By RN and Requested By Patient pt feels rectal pressure Assessment & Plan (1) Encounter for supervision in primigravida, antepartum: (2) Obesity affecting , antepartum: (3) Normal labor: good cx change. fhts categ 1. anticip 2nd stage soon. Admission and Anticipated Discharge Date Admission Date: June 14, 2020 Physical Exam Constitutional: WD/WN, vitals as above Genitourinary: Manual OB Exam: + cervical dilation (anterior lip, right), + cervical effacement 100% and + station + 1 OB Exam Monitor Tracing: + external FHT monitor used (165 mod variability, +scalp stim response, early decels), + external uterine monitor used (q2, pit at 1), + category I and + normal FHT variability [facility] & Data ([facility]) Vital Signs (Past 12 Hours) Vital Signs Temp Pulse Resp BP Pulse Ox 06/14/20 22:12 135 H 93 06/14/20 22:08 123 H 93 06/14/20 22:07 134 H 94 06/14/20 22:02 139 H 97 06/14/20 21:58 123 H 138/72 94 06/14/20 21:57 128 H 93 06/14/20 21:53 126 H 94 06/14/20 21:52 130 H 93 06/14/20 21:48 99.3 F 18 06/14/20 21:47 124 H 93 06/14/20 21:43 127 H 125/63 06/14/20 21:42 118 H 94 06/14/20 21:37 127 H 93 06/14/20 21:36 124 H 93 18 21:32 131 H 94 1820 21:29 131 H 135/78 94 1820 21:27 128 H 94 1820 21:24 128 H 94 20 21:22 129 H 94 06/14/20 21:17 135 H 93 06/14/20 21:14 134 H 137/71 1820 21:12 144 H 93 06/14/20 21:07 130 H 94 06/14/20 21:06 127 H 94 06/14/20 21:02 128 H 94 06/14/20 20:59 126 H 121/65 07/18/20 20:58 128 H 94 07/18/20 20:57 139 H 94 07/18/20 20:52 137 H 93 07/18/20 20:50 100.2 F H 20 07/18/20 20:47 129 H 92 07/18/20 20:44 121 H 146/70 H 07/18/20 20:42 124 H 92 07/18/20 20:37 118 H 94 07/18/20 20:32 115 H 93 07/18/20 20:28 122 H 134/64 07/18/20 20:27 117 H 93 07/18/20 20:22 123 H 93 07/18/20 20:17 119 H 91 07/18/20 20:13 115 H 135/75 07/18/20 20:12 119 H 93 07/18/20 20:07 114 H 93 07/18/20 20:02 115 H 93 07/18/20 19:59 113 H 133/72 07/18/20 19:57 119 H 93 07/18/20 19:55 118 H 94 07/18/20 19:52 120 H 94 07/18/20 19:47 117 H 94 07/18/20 19:45 116 H 94 07/18/20 19:44 105 H 136/70 07/18/20 19:42 113 H 93 07/18/20 19:38 112 H 94 07/18/20 19:37 106 H 95 07/18/20 19:33 108 H 94 07/18/20 19:32 119 H 93 07/18/20 19:28 113 H 131/64 07/18/20 19:27 105 H 94 07/18/20 19:26 104 H 94 07/18/20 19:22 114 H 94 07/18/20 19:20 111 H 94 07/18/20 19:17 111 H 94 07/18/20 19:14 113 H 134/63 07/18/20 19:12 114 H 94 07/18/20 19:11 114 H 94 07/18/20 19:07 111 H 93 07/18/20 19:06 107 H 94 07/18/20 19:02 108 H 93 07/18/20 19:00 98.8 F 18 07/18/20 18:58 111 H 127/72 07/18/20 18:57 106 H 94 07/18/20 18:54 111 H 94 07/18/20 18:52 105 H 95 07/18/20 18:47 108 H 95 07/18/20 18:43 100 H 135/85 07/18/20 18:42 100 H 96 07/18/20 18:37 98 H 95 07/18/20 18:32 97 H 95 07/18/20 18:29 110 H 129/77 07/18/20 18:27 104 H 94 07/18/20 18:22 114 H 95 07/18/20 18:17 115 H 94 07/18/20 18:15 117 H 116/75 07/18/20 18:12 108 H 96 07/18/20 18:07 121 H 97 07/18/20 18:02 108 H 97 07/18/20 18:00 110 H 125/69 07/18/20 17:57 113 H 97 07/18/20 17:52 118 H 95 07/18/20 17:47 110 H 96 07/18/20 17:44 111 H 135/78 07/18/20 17:42 111 H 96 07/18/20 17:37 106 H 94 07/18/20 17:32 109 H 95 07/18/20 17:30 102 H 20 94 07/18/20 17:28 114 H 109/61 07/18/20 17:27 104 H 95 07/18/20 17:22 117 H 96 07/18/20 17:17 110 H 95 07/18/20 17:13 114 H 121/73 07/18/20 17:12 105 H 95 07/18/20 17:07 121 H 95 07/18/20 17:05 117 H 94 07/18/20 17:02 115 H 95 07/18/20 16:59 103 H 126/70 07/18/20 16:57 105 H 94 07/18/20 16:52 112 H 94 07/18/20 16:47 104 H 93 07/18/20 16:45 107 H 94 07/18/20 16:44 114 H 115/69 07/18/20 16:42 130 H 95 07/18/20 16:40 109 H 94 07/18/20 16:37 114 H 95 07/18/20 16:31 106 H 93 07/18/20 16:29 104 H 116/68 06/14/20 16:26 103 H 94 06/14/20 16:21 101 H 94 06/14/20 16:16 115 H 94 06/14/20 16:15 97 H 93 06/14/20 16:12 98 H 106/57 L 06/14/20 16:10 102 H 100 06/14/20 16:09 112 H 79/48 L 06/14/20 16:06 102 H 95/52 L 06/14/20 16:05 107 H 99 06/14/20 16:03 111 H 109/54 L 06/14/20 16:00 98.1 F 113 H 18 104/54 L 99 06/14/20 15:55 124 H 100 06/14/20 15:50 102 H 100 06/14/20 15:45 94 H 98 06/14/20 15:40 102 H 97 06/14/20 15:35 88 99 06/14/20 15:30 102 H 98 06/14/20 15:25 105 H 99 06/14/20 15:23 90 87 L 06/14/20 15:20 93 H 100 06/14/20 15:17 98.6 F 18 06/14/20 15:15 92 H 100 06/14/20 15:10 96 H 99 06/14/20 15:05 89 93 06/14/20 15:04 85 93 06/14/20 14:59 86 115/84 06/14/20 14:09 93 H 138/104 H Coding Level of Care Code None Diagnoses Encounter for supervision in primigravida, antepartum Z34.00 Obesity affecting , antepartum O99.210 Normal labor O80; Z37.9
[2020-06-14] MEDS ORDERED: BUTORPHANOL TARTRATE 1 MG/ML VIAL ONE (23:50)
--- NOTE | 2020-06-15 00:05 | Delivery Summary ---
Vaginal Delivery Summary Date of Service June 15, 2020 The patient dilated to complete and pushed to deliver a viable female infant Apgars 7 and 8 via over 2nd degree perineal laceration. Mouth and nose bulb suctioned at perineum. Loose nuchal x 1 reduced with ease. Shoulders and body delivered with ease. was vigorous and crying at . Foul odor immediately detected. Cord clamped at 10 seconds of life and infant to maternal abdomen where the cord was then doubly clamped and cut. Placenta delivered spontaneously and intact, three-vessel cord. Hemostasis achieved with dilute pitocin and uterine massage and drainage of the bladder for approximately 100 cc under sterile conditions. Laceration repaired in usual fashion with 3-0 vicryl after 1% local lidocaine. Cervix and sulci intact. Cord blood and gases sent. EBL 300 cc. Mother and baby stable recovery. [facility] [place] Vaginal Delivery Charge Vaginal Delivery Codes: 80520 global code for the antepartum, delivery, and post-
[2020-06-15] MEDS ORDERED: BUTORPHANOL TARTRATE 1 MG/ML VIAL IV PRN (00:06)
[2020-06-15] MEDS ORDERED: OXYCODONE/ACETAMINOPHEN 5mg/325mg TAB PO PRN (00:06)
[2020-06-15] MEDS ORDERED: ACETAMINOPHEN 325 MG TAB PO PRN (00:06)
[2020-06-15] MEDS ORDERED: HYDROCORTISONE ACETATE 25 MG SUPP PR PRN (00:06)
[2020-06-15] MEDS ORDERED: OXYTOCIN 30 UNITS/500 ML BAG IV PRN (00:06)
[2020-06-15] MEDS ORDERED: SUPERCREAM 0.870% 15 GM JAR EXT PRN (00:06)
[2020-06-15] MEDS ORDERED: DIPHTHERIA/TETANUS/PERTUSSIS 0.5 ML SYR/VIAL IM ONE (00:06)
[2020-06-15] MEDS ORDERED: OXYTOCIN 20 UNITS in LACTATED RINGER'S 1,000 ML IV SCH (00:06)
[2020-06-15] MEDS ORDERED: BENZOCAINE 20% AER SPR 82.5 GM CAN EXT PRN (00:06)
[2020-06-15 00:19] LABS: Base Excess Cord Arterial Bld -5.2 mEq/L (-9-1.8); CO2 Cord Arterial Blood 51 mmHg (39.1-73.5); Cord Venous Blood HCO3 18 mmol/L (18.4-26.8); Cord Venous Blood PCO2 33 mmHg (30.4-57.2); Cord Venous Blood PO2 32 mmHg (14.1-43.3); Cord Venous Blood pH 7.37 (7.20-7.44); HCO3 Cord Arterial Blood 22 mmol/L (19.7-28.5); Oxygen Sat Cord Arterial Blood < 60.0 % (<60); PO2 Cord Arterial Blood 16 mmHg (4.1-31.7); pH Cord Arterial Blood 7.26 (7.1-7.38)
[2020-06-15] MEDS: IBUPROFEN 600 MG TAB PO PRN ×3 (00:24→19:38)
[2020-06-15] MEDS: DOCUSATE SODIUM 100 MG CAP PO SCH ×2 (09:17→19:39)
--- NOTE | 2020-06-15 09:38 | Obstetrical Progress Note ---
Date of Service June 15, 2020 Assessment & Plan (1) examination following vaginal delivery: stable, routine care. , rubella immune Subjective Ambulation: ambulating normally Voiding: no voiding problems Diet Tolerance:: regular diet Lochia:: Small Feeding Type:: breast feeding no pain issues Physical Exam Constitutional WD/WN, vitals as above Respiratory normal respiratory effort, lungs clear to auscultation Cardiovascular Rate/Rhythm: regular rate and regular rhythm Gastrointestinal (Abdomen) Inspection/Auscultation: abdomen normal to inspection Percussion/Palpation: abdomen soft Fundus firm 2cm down Musculoskeletal nt calves no edema Neurologic grossly normal Psychiatric A+Ox3, euthymic affect Results & Data ([facility]) Vital Signs (Past 12 Hours) Vital Signs Temp Pulse Resp BP Pulse Ox 06/15/20 08:20 97 H 133/78 06/15/20 08:15 99.3 F 97 H 20 133/78 06/15/20 04:42 110 H 130/74 06/15/20 04:30 98.4 F 110 H 18 130/74 06/15/20 02:23 115 H 119/58 L 06/15/20 02:08 113 H 18 127/66 06/15/20 01:53 120 H 136/67 06/15/20 01:38 98.8 F 118 H 18 121/66 06/15/20 01:24 130 H 79/53 L 06/15/20 00:52 148 H 137/72 06/15/20 00:50 141 H 146/107 H 06/15/20 00:35 136 H 18 140/73 06/15/20 00:20 137 H 18 137/71 06/15/20 00:05 98.8 F 153 H 20 131/68 06/14/20 23:49 142 H 141/68 H 06/14/20 23:43 146 H 137/63 06/14/20 23:13 142 H 143/66 H 06/14/20 23:02 131 H 89 L 06/14/20 23:01 128 H 94 06/14/20 23:00 99.9 F H 118 H 18 137/70 06/14/20 22:57 128 H 95 06/14/20 22:55 128 H 93 06/14/20 22:52 124 H 94 06/14/20 22:49 125 H 94 07/18/20 22:47 130 H 97 20 22:44 128 H 141/84 H 93 20 22:42 125 H 89 L 20 22:37 130 H 93 20 22:32 134 H 93 20 22:31 123 H 93 20 22:30 98.8 F 18 06/14/20 22:29 126 H 132/75 06/14/20 22:27 124 H 96 06/14/20 22:25 127 H 94 06/14/20 22:22 130 H 94 06/14/20 22:19 128 H 93 20 22:17 131 H 92 06/14/20 22:15 123 H 136/73 06/14/20 22:14 135 H 94 06/14/20 22:12 135 H 93 06/14/20 22:08 123 H 93 06/14/20 22:07 134 H 94 06/14/20 22:02 139 H 97 06/14/20 21:58 123 H 138/72 94 06/14/20 21:57 128 H 93 20 21:53 126 H 94 20 21:52 130 H 93 20 21:48 99.3 F 18 20 21:47 124 H 93 20 21:43 127 H 125/63 20 21:42 118 H 94 20 21:37 127 H 93 1820 21:36 124 H 93
--- NOTE | 2020-06-15 10:04 | Anesthesia Procedure Note ---
Date of Service June 15, 2020 Anesthesia Post Epidural Note Vital Signs Vital Signs: Temp Pulse Resp BP Pulse Ox 37.4 C 97 H 20 133/78 89 L 06/15/20 08:15 06/15/20 08:20 06/15/20 08:15 06/15/20 08:20 06/14/20 23:02 Pain Intensity Bilateral Episiotomy/Laceration: Pain Intensity: 3 Notes Mental Status: alert / awake / arousable and participated in evaluation Patient Amnestic to Procedure: Yes Nausea / Vomiting: adequately controlled Pain: adequately controlled Airway Patency, RR, SpO2: stable & adequate BP & HR: stable & adequate Hydration State: stable & adequate Neuraxial Anesthesia: was administered and sensory block resolved Anesthetic Complications: no major complications apparent and Pt Satisfied with anesthetic care Epidural: Removed without complications and With tip intact
[2020-06-15] MEDS ORDERED: Nursing to Pharmacy Communication SCH (10:15)
--- NOTE | 2020-06-16 06:07 | Obstetrical Progress Note ---
Date of Service <Dhaval Kapadia MD - Last Filed: 06/16/20 07:03> June 16, 2020 Assessment & Plan <Dhaval Kapadia MD - Last Filed: 06/16/20 07:03> (1) Normal labor: - Feels well today. Eating well, voiding well, ambulating well. - Pain well controlled with analgesics. - Routine care - After discharge will have 6 week followup. Subjective <Dhaval Kapadia MD - Last Filed: 06/16/20 07:03> Nidia is a 29 y/o female ; PPD #2 following spontaneous vaginal delivery at 39+ weeks; doing well this morning; light abdominal cramping & 4/10 pain well managed on analgesics; voiding well; tolerating meals overnight and able to ambulate some; some persistent lochia with some improvement this morning. Review of Systems Constitutional: denies fever, chills, sweat, headache Respiratory: denies shortness of breath, difficulty breathing Cardiac: denies chest pain, palpitations, chest pressure Breast: denies breast pain : denies dysuria Physical Exam <Dhaval Kapadia MD - Last Filed: 06/16/20 07:03> General: Alert, oriented. No acute distress. Cardiac: Regular rate and rhythm, no murmurs/rubs/gallops. Respiratory: Clear to auscultation bilaterally a/p, no wheezes/rales/rhonchi. No increased work of breathing. Symmetrical chest rise. No respiratory distress. Abdomen: Soft, nontender, nondistended. Bowel sounds present. Uterus: Uterine fundus firm, palpable 2cm below umbilicus. Lower Extremities: No lower extremity edema or swelling. No deep calf pain. Kimberly's negative bilaterally. Results & Data <Dhaval Kapadia MD - Last Filed: 06/16/20 07:03> Vital Signs (Past 12 Hours) Vital Signs Temp Pulse Resp BP Pulse Ox 06/15/20 23:25 36.8 C 97 H 16 118/77 06/15/20 19:30 36.4 C L 99 H 16 119/80 97 <Keyonna Kinsey MD, FACOG - Last Filed: 06/16/20 07:43> Co-Signing Physician Notes Resident Physician Supervision Note: I was present with Dr. Ellsworth during the history and exam. I discussed the case with the resident and agree with the findings and plan as documented in the note. Any exceptions or clarifications are listed here: doing well, , rh pos, ri, eating, voiding, ambulating, af, vss, ff 2 down, nt, d/c home, instructions reviewed, f/u 6 wks pp check. Documented By: Keyonna Kinsey MD, FACOG Resident Activity Tracking <Dhaval Kapadia MD - Last Filed: 06/16/20 07:03> Resident Involvement: Resident Care Provided Care Provided: OB Delivery
[2020-06-16] MEDS: IBUPROFEN 600 MG TAB PO PRN ×2 (06:30→15:31)
[2020-06-16] MEDS: DOCUSATE SODIUM 100 MG CAP PO SCH (15:31)
== END 2020-06-16 15:56 | disposition home or self-care (01) | DRG 807 ==
LOC: OPB 13:52 → 4S1 13:53 → 4S2 06-15 15:09